=== PATIENT | female | born 1985 | race Caucasian/White ===

== ENCOUNTER → 2021-03-19 | Outpatient (CLI) | payer BC ==
[~2021-03-19] MED LIST: PANT40TA29 PO; TOPI25TA10; ZOLO100T PO
== END ==
LOC: M LABSMTC 11:55
PROVIDERS: ATTEND Anesthesiology
DX: Z01.812 Encounter for preprocedural laboratory examination (principal); Z20.822 Contact with and (suspected) exposure to COVID-19

== ENCOUNTER 2021-03-21 10:00 | Day surgery (SDC) | payer BC ==
[~2021-03-21] VITALS: Ht 149.9 cm; Wt 100.6 kg
[2021-03-21] VITALS (8 sets, daily range): BP systolic 101–115; BP diastolic 60–65; O2SAT 94–96
[~2021-03-21 10:00] MED LIST changes: +LR 1,000 ML IV ONE; +ceFAZolin SOD 2 GM in IV 1 EA IV ONE
[2021-03-21] MEDS ORDERED: fentaNYL 100 MCG/2 ML INJECTION (J3010) As Ordered ONE ×2 (10:20→13:48)
[2021-03-21] MEDS ORDERED: MIDAZOLAM INJ 2MG/2ML VIAL (J2250 PER 1MG) As Ordered ONE (10:20)
[2021-03-21] MEDS ORDERED: LIDOCAINE 2% 100MG/5ML SDV (FOR ANES.) As Ordered ONE (10:20)
[2021-03-21] MEDS ORDERED: KETOROLAC 60MG 2ML VIAL As Ordered ONE (10:20)
[2021-03-21] MEDS ORDERED: ONDANSETRON 4MG/2ML VIAL As Ordered ONE (10:20)
[2021-03-21] MEDS ORDERED: dexameTHASONE 4 MG/ML 1ML VIAL (J1100 PER 1MG) As Ordered ONE (10:20)
[2021-03-21] MEDS ORDERED: HYDROmorphone HCL 2 MG/ML 1ML VIAL (J1170) As Ordered ONE (10:20)
[2021-03-21] MEDS ORDERED: propofoL 200 MG/20 ML VIAL As Ordered ONE (10:21)
[2021-03-21] MEDS ORDERED: ROCURONIUM BROMIDE 50 MG/5 ML VIAL As Ordered ONE ×2 (10:21→12:27)
[2021-03-21] MEDS ORDERED: VITAMIN D PO (10:26)
[2021-03-21] MEDS ORDERED: SERTRALINE PO (10:26)
[2021-03-21] MEDS ORDERED: TOPI25TA10 (10:26)
[2021-03-21 10:38] LABS: HEMATOCRIT 45.2 % (36.0-47.0); HEMOGLOBIN 14.6 g/dl (12.0-15.5); MEAN CORPUSCULAR HEMOGLOBIN 28.7 pg (27.0-33.0); MEAN CORPUSCULAR HGB CONC 32.3 g/dl (32.0-36.5); PLATELET COUNT, AUTOMATED 359 10^3/uL (150-450); RED BLOOD COUNT 5.08 10^6/uL (4.00-5.40); WHITE BLOOD COUNT 12.2 10^3/uL (4.0-10.0)
[2021-03-21] MEDS ORDERED: BUPIVACAINE HCL 0.25% 10ML VIAL As Ordered ONE (11:19)
[2021-03-21] MEDS ORDERED: ACETAMINOPHEN 1000MG 100ML IV BTL (OFIRMEV) (J0131 PER 10MG) As Ordered ONE (12:15)
[2021-03-21] MEDS ORDERED: SUGAMMADEX SODIUM 500 MG/5 ML VIAL (BRIDION) As Ordered ONE (12:28)
[2021-03-21] MEDS ORDERED: ePHEDrine SULFATE 25 MG/5 ML(5MG/ML) SYRINGE As Ordered ONE (12:28)
[2021-03-21] MEDS ORDERED: PHENYLephrine 500MCG 5ML (100MCG/ML) SYRINGE As Ordered ONE (12:28)
[2021-03-21] MEDS: fentaNYL 100 MCG/2 ML INJECTION (J3010) IV PRN ×2 (13:49→13:57)
--- NOTE | 2021-03-21 13:51 | ROOPDOC ---
[facility] Report Of Operation Report of Operation DATE OF PROCEDURE: 03/21/21 OPERATIVE REPORT: Preoperative diagnosis: pelvic pain, fibroids. Postoperative diagnosis: Same. Procedure: Robotic-assisted laparoscopic hysterectomy, cystoscopy. Surgeon: Peter Jean M.D. Transport Aide: Tiffany Gonzalez NP Findings: Uterus with small fibroids. Surgically absent fallopian tubes. Normal-appearing ovaries. Omental adhesions to anterior abdominal wall in the midline. Normal upper abdomen EBL: 100 mL's. Urine output: 100 mL's. Operative summary: Patient was taken to the operating room where general endotracheal anesthesia was induced. She was prepped and draped in sterile fashion in the dorsal lithotomy position. A Gutierrez Catheter was placed. A V care uterine manipulator was placed. A Periumbilical incision was made with a scalpel. . A Veress needle was placed through this incision. Intra-abdominal location of Veress needle was assessed with saline filled syringe. A pneumop eritoneum was created. The Veress needle was removed. An 8 mm trocar using the Visiport was inserted through this incision. Three 8 mm suprapubic ports were placed under direct visualization The patient was placed in Trendelenburg position. The [employer] [place] surgical robot was docked to the ports. Using the fenestrated bipolar instrument and vessel sealer, broad ligaments and utero-ova belen ligaments were coagulated and incised. The round ligaments were coagulated and incised. The anterior and posterior leaves of the broad ligament were . Bladder flap was created. The uterine vessels were coagulated and incised using monopolar Endo Chaitanya. A colpotomy was created in the upper vagina at the level of the V care Cup. The specimen including the uterus and cervix was removed through the vagina. The vaginal cuff was closed with #1 V lock suture in running fashion. Cystoscopy was performed using a 70 cystoscope. Bilateral ureteral jets were identified. No evidence of injury to the bladder. The cystoscope was removed. All instruments removed. The skin was closed with 4-0 Monocryl subcuticular sutures. Tiffany Gonzalez NP assisted with all aspects of the procedure. She helped position the patient. She helped insert the ports and manipulate the uterus. She removed the specimen. PETER JEAN MD Mar 21, 2021 13:51
[2021-03-21] MEDS ORDERED: OXYC1TAB23 PO (13:53)
[2021-03-21] MEDS ORDERED: IBUP-1022 PO (13:54)
[2021-03-21] MEDS ORDERED: oxyCODONE 5MG TAB PO PRN ×2 (14:05→16:30)
[2021-03-21] MEDS ORDERED: LR 1,000 ML IV SCH ×3 (14:05→16:30)
[2021-03-21] MEDS ORDERED: MEPERIDINE INJ 25 MG/ML VIAL (J2175) IV PRN ×2 (14:05→16:30)
[2021-03-21] MEDS ORDERED: ONDANSETRON 4MG/2ML VIAL IV PRN ×3 (14:05→16:30)
[2021-03-21] MEDS ORDERED: PERCOCET 5MG/325MG TAB PO PRN (14:10)
[2021-03-21] MEDS ORDERED: MORPHINE 4 MG/ML 1ML VIAL/SYRINGE (J2270) IV PRN (14:10)
[2021-03-21] MEDS ORDERED: KETOROLAC 30 MG/ML 1ML VIAL IV PRN (14:10)
[2021-03-21] MEDS ORDERED: fentaNYL 100 MCG/2 ML INJECTION (J3010) IV PRN (16:30)
[2021-03-21] MEDS: PERCOCET 5MG/325MG TAB PO PRN (19:11)
[2021-03-21] MEDS: DOCUSATE SODIUM 100MG CAPSULE PO SCH (20:24)
[2021-03-22] MEDS: PERCOCET 5MG/325MG TAB PO PRN ×2 (01:55→08:42)
[2021-03-22 02:00] VITALS: BP 105/63
[2021-03-22 06:06] VITALS: BP 103/63
[2021-03-22] MEDS: DOCUSATE SODIUM 100MG CAPSULE PO SCH (08:41)
[2021-03-22 10:00] VITALS: BP 119/64
[2021-03-22 11:29] VITALS: O2SAT 95
== END 2021-03-22 13:40 | disposition home or self-care (01) ==
LOC: M SDC 10:00 → EDUNIT# 12:30 → M MSPAV 15:17 → M SDC 03-22 13:40
PROVIDERS: ATTEND Specialist
DX: D25.9 Leiomyoma of uterus, unspecified (principal); N72 Inflammatory disease of cervix uteri; N73.6 Female pelvic peritoneal adhesions (postinfective); K21.9 Gastro-esophageal reflux disease without esophagitis; F41.9 Anxiety disorder, unspecified; F32.9 Major depressive disorder, single episode, unspecified; Z79.899 Other long term (current) drug therapy
CPT/HCPCS: 36415; 58570; 85027; 86850; 86900; 86901; 88307; J0131; J0690; J1100; J1170; J1885; J2250; J2370; J2405; J3010; S2900

== ENCOUNTER 2022-02-27 10:10 | Day surgery (SDC) | payer BC ==
[~2022-02-27] VITALS: Ht 149.9 cm; Wt 116.1 kg
[~2022-02-27 10:10] MED LIST changes: +IBUP-1022 PO; -LR 1,000 ML IV ONE; +NS 1,000 ML IV ONE; +OXYC1TAB23 PO; +SERT50TA29 PO; +SERTRALINE PO; +VITAMIN D PO; +VITMTA PO; +WELLTAB38 PO; -ceFAZolin SOD 2 GM in IV 1 EA IV ONE
[2022-02-27] MEDS ORDERED: LIDOCAINE 2% 100MG/5ML SDV (FOR ANES.) As Ordered ONE (11:20)
[2022-02-27] MEDS ORDERED: fentaNYL 100 MCG/2 ML INJECTION As Ordered ONE (11:20)
[2022-02-27] MEDS ORDERED: propofoL 200 MG/20 ML VIAL As Ordered ONE (11:20)
[2022-02-27 12:32] VITALS: BP 113/75
== END 2022-02-27 12:32 | disposition home or self-care (01) ==
LOC: M OPP 10:10
PROVIDERS: ATTEND Internal Medicine Gastroenterology
DX: K22.89 Other specified disease of esophagus (principal); K21.00 Gastro-esophageal reflux disease with esophagitis, without bleeding; K44.9 Diaphragmatic hernia without obstruction or gangrene; R12 Heartburn; R19.7 Diarrhea, unspecified; Z79.899 Other long term (current) drug therapy
CPT/HCPCS: 43239; 88305; J3010

== ENCOUNTER 2024-04-17 10:21 | Emergency (ER) | payer OTHER ==
[~2024-04-17] VITALS: Ht 149.9 cm; Wt 101.6 kg
[~2024-04-17 10:21] MED LIST changes: -NS 1,000 ML IV ONE
[2024-04-17] MEDS ORDERED: CLIN150C17 PO (10:28)
[2024-04-17 14:46] LABS: BASO # 0.1 10^3/uL (0.0-0.2); BASO % 0.6 % (0.0-1.0); EOS # 0.2 10^3/uL (0.0-0.5); EOS % 1.3 % (0.0-3.0); HEMATOCRIT 46.5 % (36.0-47.0); HEMOGLOBIN 15.1 g/dl (12.0-15.5); LYMPH # 2.6 10^3/uL (1.5-5.0); LYMPH % 20.2 % (24.0-44.0); MEAN CORPUSCULAR HEMOGLOBIN 28.7 pg (27.0-33.0); MEAN CORPUSCULAR HGB CONC 32.5 g/dl (32.0-36.5); MEAN CORPUSCULAR VOLUME 88.2 fl (80.0-96.0); MONO # 0.5 10^3/uL (0.0-0.8); MONO % 4.3 % (2.0-8.0); NEUTROPHILS # 9.3 10^3/uL (1.5-8.5); NEUTROPHILS % 73.2 % (36.0-66.0); PLATELET COUNT, AUTOMATED 390 10^3/uL (150-450); RED BLOOD COUNT 5.27 10^6/uL (4.00-5.40); WHITE BLOOD COUNT 12.7 10^3/uL (4.0-10.0)
[2024-04-17] MEDS: dexAMETHasone 20MG/5ML VIAL IV ONE (14:49)
[2024-04-17] MEDS: AMPICILLIN SOD/SULBACTAM SOD 3 GM in D5W MINI-BAG PLUS 100 ML IV ONE (14:49)
[2024-04-17] MEDS: KETOROLAC 30 MG/ML 1ML VIAL IV ONE (14:56)
[2024-04-17 15:14] LABS: C REACTIVE PROTEIN QUANTITATIV < 0.40 MG/DL (<1.0)
[2024-04-17 15:15] LABS: BLOOD UREA NITROGEN 9 MG/DL (9-23); CALCIUM LEVEL 8.7 MG/DL (8.5-10.1); CARBON DIOXIDE LEVEL 28 MMOL/L (20-31); CHLORIDE LEVEL 109 MMOL/L (98-107); CREATININE FOR GFR 0.85 MG/DL (0.55-1.30); GLOMERULAR FILTRATION RATE > 60.0 (>60); GLUCOSE, FASTING 86 MG/DL (60-100); POTASSIUM SERUM 4.2 MMOL/L (3.5-5.1); SODIUM LEVEL 141 MMOL/L (136-145)
[2024-04-17] MEDS: ONDANSETRON 4MG 2ML VIAL IV ONE (15:19)
[2024-04-17] MEDS ORDERED: AMOX875T2 PO (15:50)
[2024-04-17] MEDS ORDERED: KETO10TAB PO (15:50)
[2024-04-17 16:00] VITALS: BP 122/75; TEMP 98.1; O2SAT 97
== END 2024-04-17 16:01 | disposition home or self-care (01) ==
LOC: M ED 10:21
DX: K02.9 Dental caries, unspecified (principal); K21.9 Gastro-esophageal reflux disease without esophagitis; F32.A Depression, unspecified; J30.89 Other allergic rhinitis; Z79.899 Other long term (current) drug therapy
CPT/HCPCS: 80048; 85025; 86140; 96365; 96375; 99284; J0295; J1100; J1885; J2405